=== PATIENT | female | born 1955 | race Caucasian/White ===

== ENCOUNTER 2016-11-13 20:03 | Inpatient (IN) | payer MEDICARE, BC ==
[2016-11-13] MEDS ORDERED: Levalbuterol HCl 0.63 MG/3 ML Neb NEB ONE (20:04)
[2016-11-13] MEDS ORDERED: methylPREDNISolone Sodium Succinate 125 MG/2 ML SDV IVPUSH ONE (20:04)
--- NOTE | 2016-11-13 20:05 | EDM.PDOC ---
ED HPI GENERAL MEDICAL PROBLEM - General Stated Complaint: CHEST PAIN Time Seen by Provider: 11/13/16 20:05 Source of Information: Reports: Patient - History of Present Illness INITIAL COMMENTS - FREE TEXT/NARRATIVE: HISTORY AND PHYSICAL: History of present illness: [] Patient with history of COPD on home oxygen dependent 2 L nasal cannula in recent CT history 3 weeks prior presents with shortness of breath and chest pain rated 5/10 nonradiating, she presents via right ambulance The patient was stable on arrival she did receive 2 nitroglycerin and aspirin via ambulance, 02 sat is remained 97% ambulance arrival, they did put her on nonrebreather which did help Chest was quite tight on arrival Solu-Medrol and Xopenex was provided with improvement, patient is now stepped down to nasal cannula, chest pain has resolved, she is able to speak but still significantly short of breath No fever nausea vomiting chills sweats Review of systems: As per history of present illness and below otherwise all systems reviewed and negative. Past medical history: As per history of present illness and as reviewed below otherwise noncontributory. Surgical history: As per history of present illness and as reviewed below otherwise noncontributory. Social history: No reported history of drug or alcohol abuse. Family history: As per history of present illness and as reviewed below otherwise noncontributory. Physical exam: HEENT: Atraumatic, normocephalic, pupils reactive, negative for conjunctival pallor or scleral icterus, mucous membranes moist, throat clear, neck supple, nontender, trachea midline. Lungs: Clear to auscultation, breath sounds equal bilaterally, chest nontender. Heart: S1S2, regular, negative for clicks, rubs, or JVD. Abdomen: Soft, nondistended, nontender. Negative for masses or hepatosplenomegaly. Negative for costovertebral tenderness. Pelvis: Stable nontender. Genitourinary: Deferred. Rectal: Deferred. Extremities: Atraumatic, negative for cords or calf pain. Neurovascular unremarkable. Neuro: Awake, alert, oriented. Cranial nerves II through XII unremarkable. Cerebellum unremarkable. Motor and sensory unremarkable throughout. Exam nonfocal. Diagnostics: [] As below EKG Chest one view Therapeutics: [] Solu-Medrol 125 mg IV Xopenex Ativan 1 mg IV 1 L normal saline bolus Levaquin 500 mg IV Impression: [] Sinus tachycardia Anxiety COPD home oxygen dependent CHF/pneumonia Atypical Chest pain Definitive disposition and diagnosis as appropriate pending reevaluation and review of above. - Related Data Allergies Allergy/AdvReac Type Severity Reaction Status Date / Time albuterol sulfate Allergy Tachycardia Verified 11/13/16 21:13 [From ProAir HFA] Home Meds: Home Meds Tiotropium [Spiriva HandiHaler] 1 puff INH DAILY 05/11/15 [History] traMADol HCl [Tramadol HCl] 50 mg PO Q6H PRN 05/11/15 [History] Budesonide/Formoterol [Symbicort 160-4.5 MCG] 1 inh IH BID 06/25/15 [History] Levalbuterol HCl [Xopenex] 0.63 mg IH Q4HR PRN #30 ml 07/02/15 [Rx] Diltiazem HCl [Diltiazem ER] 1 tab PO DAILY 05/11/16 [History] Metoprolol Succinate [Toprol XL] 0.5 tab PO BEDTIME 05/11/16 [History] Promethazine [Phenergan] 12.5 mg PO Q6H PRN 05/11/16 [History] Past Medical History Respiratory History: Reports: COPD, Other (see below) Other Respiratory History: emphysema. home O2 at times [employer] History: Reports: Other OB/BYN History: vaginal delivery - Past Surgical History HEENT Surgical History: Reports: Other (see below) Other HEENT Surgeries/Procedures: vocal cord repair Other Respiratory Surgeries/Procedures: lung tumor removal Social & Family History - Family History Family Medical History: Noncontributory - Tobacco Use Smoking Status *Q: Former Smoker Years of Tobacco use: 30 Packs/Tins Daily: 2 Used Tobacco, but Quit: Yes Month Tobacco Last Used: quit 10 years ago Second Hand Smoke Exposure: No - Recreational Drug Use Recreational Drug Use: No ED ROS GENERAL - Review of Systems Review Of Systems: ROS reveals no pertinent complaints other than HPI. ED EXAM, GENERAL - Physical Exam Exam: See Below Course - Vital Signs Last Recorded V/S: Last Vital Signs Temp Pulse 129 H 11/13/16 20:25 Resp 18 11/13/16 20:25 BP 121/55 L 11/13/16 20:25 Pulse Ox 97 11/13/16 20:25 - Orders/Labs/Meds Orders: Active Orders 24 hr Category Date Time Status EKG Documentation Completion [RC] STAT Care 11/13/16 20:06 Active RT Aerosol Therapy [RC] ASDIRECTED Care 11/13/16 20:04 Active Chest 1V Frontal [CR] Stat Exams 11/13/16 20:06 Taken B-TYPE NATRIURETIC PEPTIDE,BNP [CHEM] Stat Lab 11/13/16 21:19 Ordered CULTURE BLOOD [BC] Stat Lab 11/13/16 21:20 Ordered CULTURE BLOOD [BC] Stat Lab 11/13/16 21:20 Ordered UA W/MICROSCOPIC [URIN] Stat Lab 11/13/16 21:10 Received Sodium Chloride 0.9% [Normal Saline] 1,000 ml Med 11/13/16 20:39 Active IV STAT Blood Culture x2 Reflex Set [OM.PC] Stat Oth 11/13/16 21:20 Ordered Medication Orders Sodium Chloride (Normal Saline) 1,000 mls @ 999 mls/hr IV STAT ONE Stop: 11/13/16 21:39 Labs: Laboratory Tests 11/13/16 11/13/16 11/13/16 Range/Units 20:15 20:15 20:15 WBC 8.80 (4.0-11.0) K/uL RBC 3.83 L (4.30-5.90) M/uL Hgb 12.2 (12.0-16.0) g/dL Hct 38.7 (36.0-46.0) % MCV 101.0 H (80.0-98.0) fL MCH 31.9 (27.0-32.0) pg MCHC 31.5 (31.0-37.0) g/dL RDW Std Deviation 46.7 (28.0-62.0) fl RDW Coeff of Caleb 13 (11.0-15.0) % Plt Count 177 (150-400) K/uL MPV 10.90 (7.40-12.00) fL Neut % (Auto) 81.4 H (48.0-80.0) % Lymph % (Auto) 7.8 L (16.0-40.0) % [place] % (Auto) 10.5 (0.0-15.0) % Eos % (Auto) 0.2 (0.0-7.0) % Baso % (Auto) 0.1 (0.0-1.5) % Neut # 7.2 H (1.4-5.7) K/uL Lymph # 0.7 (0.6-2.4) K/uL [place] # 0.9 H (0.0-0.8) K/uL Eos # 0.0 (0.0-0.7) K/uL Baso # 0.0 (0.0-0.1) K/uL Nucleated RBC % 0.0 /100WBC Nucleated RBCs # 0 K/uL Sodium 137 (136-146) mmol/L Potassium 4.3 (3.5-5.1) mmol/L Chloride 94 L (98-110) mmol/L Carbon Dioxide 29 (21-31) mmol/L BUN 8 (6.0-23.0) mg/dL Creatinine 0.6 (0.6-1.5) mg/dL Est Cr Clr Drug Dosing TNP Estimated GFR (MDRD) > 60.0 ml/min Glucose 106 (60-110) mg/dL Calcium 10.2 (8.8-10.8) mg/dL Total Bilirubin 0.7 (0.1-1.5) mg/dL AST 27 (5-40) IU/L ALT 28 (8-54) IU/L Alkaline Phosphatase 91 (40-150) Creatine Kinase 41 (9-236) IU/L CK-MB (CK-2) 3.1 (0-6.6) ng/ml Troponin I < 0.10 (0.0-0.29) NG/ML Total Protein 8.0 (6.0-8.0) g/dL Albumin 4.2 (3.5-5.0) g/dL Globulin 3.8 H (2.0-3.5) g/dL Albumin/Globulin Ratio 1.1 L (1.3-2.8) Amylase 32 (10-90) U/L Lipase < 8 (7-80) U/L Meds: Medications Generic Name Dose Route Start Last Admin Trade Name Freq PRN Reason Stop Dose Admin Sodium Chloride 1,000 mls @ 999 mls/hr 11/13/16 20:39 Normal Saline IV 11/13/16 21:39 STAT ONE Discontinued Medications Generic Name Dose Route Start Last Admin Trade Name Freq PRN Reason Stop Dose Admin Levalbuterol HCl 0.63 mg 11/13/16 20:04 11/13/16 20:13 Xopenex NEB 11/13/16 20:05 0.63 mg ONETIME ONE Administration Lorazepam 1 mg 11/13/16 20:50 Ativan IVPUSH 11/13/16 20:51 ONETIME ONE Methylprednisolone Sodium Succinate 125 mg 11/13/16 20:04 11/13/16 20:18 Solu-Medrol IVPUSH 11/13/16 20:05 125 mg ONETIME ONE Administration Departure - Departure Time of Disposition: 21:22 Disposition: Home, Self-Care 01 Condition: good Clinical Impression: Atypical chest pain, CHF (congestive heart failure) Pneumonia Qualifiers: Pneumonia type: aspiration pneumonia Lung location: unspecified part of lung COPD (chronic obstructive pulmonary disease) Qualifiers: COPD type: COPD with acute exacerbation Qualified Code(s): J44.1 - Chronic obstructive pulmonary disease with (acute) exacerbation Clinical Impression: (Ruled Out): Acute coronary syndrome - My Orders Last 24 Hours: My Active Orders 11/13/16 20:04 RT Aerosol Therapy [RC] ASDIRECTED 11/13/16 20:06 EKG Documentation Completion [RC] STAT Chest 1V Frontal [CR] Stat 11/13/16 20:39 Sodium Chloride 0.9% [Normal Saline] 1,000 ml IV STAT 11/13/16 21:10 UA W/MICROSCOPIC [URIN] Stat 11/13/16 21:19 B-TYPE NATRIURETIC PEPTIDE,BNP [CHEM] Stat 11/13/16 21:20 CULTURE BLOOD [BC] Stat CULTURE BLOOD [BC] Stat Blood Culture x2 Reflex Set [OM.PC] Stat - Assessment/Plan Last 24 Hours: My Active Orders 11/13/16 20:04 RT Aerosol Therapy [RC] ASDIRECTED 11/13/16 20:06 EKG Documentation Completion [RC] STAT Chest 1V Frontal [CR] Stat 11/13/16 20:39 Sodium Chloride 0.9% [Normal Saline] 1,000 ml IV STAT 11/13/16 21:10 UA W/MICROSCOPIC [URIN] Stat 11/13/16 21:19 B-TYPE NATRIURETIC PEPTIDE,BNP [CHEM] Stat 11/13/16 21:20 CULTURE BLOOD [BC] Stat CULTURE BLOOD [BC] Stat Blood Culture x2 Reflex Set [OM.PC] Stat
[2016-11-13] MEDS ORDERED: Sodium Chloride 0.9% 1,000 ML IV ONE (20:39)
[2016-11-13 20:49] LABS: CHLORIDE,CL 94 mmol/L (98-110); SODIUM,NA 137 mmol/L (136-146)
[2016-11-13] MEDS ORDERED: LORazepam 2 MG/ML MDV IVPUSH ONE (20:50)
[2016-11-13] MEDS ORDERED: Levofloxacin 500 MG Tab PO ONE (21:23)
[2016-11-13] MEDS ORDERED: Albuterol 0.083% 2.5 MG/3 ML Neb Soln NEB PRN (22:16)
[2016-11-13] MEDS ORDERED: Morphine 2 MG/ML Syringe IVPUSH PRN (22:16)
[2016-11-13] MEDS ORDERED: Nitroglycerin 0.4 MG Tab.SL SL PRN (22:21)
[2016-11-13] MEDS ORDERED: Levofloxacin/Dextrose 5%-Water 250 MG in Premix Bag 1 BAG IV ONE (22:24)
[2016-11-13] MEDS ORDERED: Levalbuterol HCl 0.63 MG/3 ML Neb NEB PRN (22:55)
[2016-11-13] MEDS ORDERED: Levofloxacin/Dextrose 5%-Water 750 MG in Premix Bag 1 BAG IV SCH (23:00)
[2016-11-13] MEDS ORDERED: Flumazenil 0.1 MG/ML 5 ML MDV IVPUSH ONE ×2 (23:18→23:45)
[2016-11-13] MEDS ORDERED: Ondansetron 4 MG/2 ML SDV IVPUSH ONE (23:46)
[2016-11-13] MEDS ORDERED: Ondansetron 4 MG/2 ML SDV ONE (23:49)
[2016-11-14] MEDS ORDERED: Piperacillin/Tazobactam 4.5 GM in Sodium Chloride 0.9% 100 ML IV SCH ×2
[2016-11-14] MEDS ORDERED: methylPREDNISolone Sodium Succinate 125 MG/2 ML SDV IVPUSH ONE (00:07)
[2016-11-14] MEDS ORDERED: Levofloxacin/Dextrose 5%-Water 250 MG in Premix Bag 1 BAG IV ONE (01:13)
[2016-11-14] MEDS ORDERED: ALPRAZolam 0.25 MG Tab PO ONE (01:21)
[2016-11-14] MEDS ORDERED: methylPREDNISolone Sodium Succinate 40 MG/1 ML SDV IVPUSH SCH (02:00)
[2016-11-14] MEDS ORDERED: Midazolam 1 MG/ML 2 ML SDV ONE (03:37)
[2016-11-14] MEDS ORDERED: fentaNYL 100 MCG/2 ML SDV ONE (03:37)
[2016-11-14] MEDS ORDERED: Lidocaine 2% 5 ML SDV ONE (03:38)
[2016-11-14] MEDS ORDERED: Enoxaparin 40 MG/0.4 ML Syringe SUBCUT ONE (04:28)
--- NOTE | 2016-11-14 04:31 | PCM.SN ---
- Free Text/Narrative Note: [id number]
--- NOTE | 2016-11-14 04:54 | PCM.SN ---
- Free Text/Narrative Note: Called for intubation for transfer on patient in ICU. Pt with history of recent KS, COPD (on home O2 prn), rt Lobectomy, vocal cord paralysis with right deviation per records. Pt VS HR 135 RR 42 BP 149/81 SpO2 89%. Dr. Ordoñez on phone arranging transfer to [place] via air ambulance. Air ambulance contacted and en route. of patient at bedside and involved in decision making. States preference to transfer to [place] vs [place] due to time of transfer difference. 0347:Pt induced with 1 mg Versed, 50 mcg fentanyl, 100 mg lidocaine, 18 mg etomidate and 100 mg succinylcholine. 7.0 ETT placed under direct visualization of clear cords with Portillo 2 blade. No apparent visualization. Positive ETCO2 indicator, lung sounds clear to left and absent on right (prior lobectomy). 0356: Pt given additional fentanyl 50 mcg IV. BP 102/59 0357: Pt given additional Versed 1 mg IV due to movement and eyes opening. 0405: Pt given Rocuronium 20 mg IV due to movement. BP 115/70 20 Gauge IV catheter placed to right forearm under aseptic technique after 2 unsuccessful attempts by nursing ward supervisor, Marcello and flight crew staff. OG placed by ICU staff with placement confirmed with air auscultation. Flight team in attendance just after intubation. Pt response to intubation and VS monitored at bedside until time of transfer. Care transferred to flight team per verbal report and pt placed on cart for transfer to [place].
[2016-11-14] MEDS ORDERED: Levofloxacin/Dextrose 5%-Water 750 MG in Premix Bag 1 BAG IV ONE (06:00)
[2016-11-14 07:17] VITALS: BP 149/81
--- NOTE | 2016-11-14 07:54 | HP ---
DATE OF : 1955 PRIMARY CARE PHYSICIAN: Rosalind Galvez DO HISTORY OF PRESENT ILLNESS: The patient was seen before mid night. The patient is a 60-year-old female presented to emergency room with chief complaint of chest pain, which actually was localized in the upper abdomen below the ribs right and left, and also shortness of breath. The patient for the past 2 days was started on Levaquin and prednisone for respiratory infection. She has end-stage lung disease and she was evaluated for lung transplant, but the transplant was on hold because she was found to have osteoporosis. 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 When the EMS arrived, the patient's oxygen saturation was 97%, and she is usually on 2 L oxygen at home, and she was given oxygen on on nonrebreather mask on her way to ER.. On the way to the hospital, her chest was quite tight as per ER note On arrival, Solu -Medrol and Xopenex were provided with improvement. The patient was placed on nasal cannula and her chest pain has resolved. As I said, when I discussed with the patient, her pain was in the upper abdomen . History of present illness is limited as the patient could not provide history very much, most of the history of present illness is from her . In the emergency room, the patient received 1 mg of Ativan and when she arrived on the floor she was unresponsive and she was transferred to ICU and was given flumazenil to reverse the benzo effect, and ABGs were ordered. PAST MEDICAL HISTORY: The patient has history of carcinoid. She has history of COPD, history of tobacco abuse, and history of vocal cord paralysis. PAST SURGICAL HISTORY: The patient is status post resection of portion of the right lung and status post vocal cord surgery. ALLERGIES: She is allergic to albuterol. She gets hyperactive. SOCIAL HISTORY: She is a smoker. She used to smoke since age 15, few packs a day, and she quit smoking 10 years ago. No alcohol use. No drug use. FAMILY HISTORY: Could not be obtained. REVIEW OF SYSTEMS: Could not be obtained due to the patient's altered mental status. PHYSICAL EXAMINATION: VITAL SIGNS: Temperature was 98.51, and pulse 128, and blood pressure 133/80, respiratory rate 32, and oxygen saturation by pulse oximetry 98% on 4 nasal cannula. When the patient was transferred to ICU, she was on 4 L nasal cannula saturating in the 96% to 99%. HEENT: Head is atraumatic and normocephalic. Pupils are equal and reactive to light. The patient does not respond to the verbal stimuli. NECK: Supple. No thyromegaly. No lymphadenopathy. LUNGS: Bilateral wheezing. HEART: S1 and S2. Tachycardic. No murmurs. ABDOMEN: Soft and nontender. Positive bowel sounds. EXTREMITIES: No edema. NEUROLOGIC: The patient does not have any gross focal neurologic deficit and she responded only after she received flumazenil, but for a short period of time due to respiratory distress. Respiratory rate at that time was in the 40s. LABORATORY DATA: On admission, sodium 137, potassium 4.2, chloride 94, CO2 of 29, BUN 8, creatinine 0.6, creatinine clearance GFR more than 60, glucose 106, calcium 10.2. Total bilirubin 0.7, direct bilirubin is 0.5, indirect bilirubin 0.2, AST 27, ALT 28, BNP 182, and troponin less than 0.1, CK-MB 3.1, creatine kinase 41, C-reactive protein 21.74, total protein 8, albumin 9.4, globulin 2.8, amylase 32, lipase less than 8. Urinalysis show bilirubin moderate and urobilinogen 2. Chest x-ray showed stable scarring in the right lung with volume loss, pleural thickening versus small right pleural effusion, interstitial type opacities in the left lung have increased and they are most likely related to scarring, acute airspace disease is not favored, but not excluded. ABGs show pH of 7.29, pCO2 of 67, pO2 of 61, bicarbonate 32, and ABG base excess 4.6, lactate 1.9. The patient's ESR was 59 ASSESSMENT AND PLAN: Acute respiratory failure. We will place the patient on BiPAP and did call the ICU consult and we will maintain oxygen in the low 91% to 92%. For pneumonia, we will give the patient IV antibiotics, Zosyn 4.5 g q.6 hours, and Levaquin for a total dose of 750 mg q.24 hours, and vancomycin as per Pharmacy. Blood culture, sputum cultures. For chronic obstructive pulmonary disease. We will treat the patient with Xopenex and Solu-Medrol 60 mg IV q.6 hours. The patient was given in ER 125 mg of Solu-Medrol and an additional dose of 125 mg was given in ICU. DVT prophylaxis, we will put the patient on heparin subcutaneous. For history of recent myocardial infarction and substernal chest pain, which was secondary to her respiratory distress, we'll f/up serial troponins. The patient currently does not have any chest pain. Her EKG show sinus tachycardia at 130, consider left atrial enlargement, low voltage precordial leads, MD 107, QRS 88, QTc 460. For depression, to be continued with Cymbalta 30 mg p.o. b.i.d. For hypertension, to be continued with diltiazem 120 mg p.o. daily. For hyperlipidemia and history of myocardial infarction atorvastatin 40 mg p.o. at bedtime, aspirin 81 mg p.o. daily. Also for chronic obstructive pulmonary disease, the patient will be continued with Symbicort 1 puff inhaled b.i.d. DISCHARGE SUMMARY: The patient had an improvement on BiPAP, which was for about 1 h and her respiratory rate decreased to 28 and afterwards the patient refused the BiPAP and she was evaluated by Critical Care. He repeated ABG at 2:35 a.m., and ABG was worsen with pH 7.24, pCO2 of 74, and pO2 of 117. Prior to ABG, she was placed on 4 L nasal cannula , saturating 100% . I was called by the ICU attending and we recommend the patient to be intubated, and Anesthesia was called. In the mean time, I have placed the patient on BiPAP again and I discussed with [facility] , ER, where her wanted her to go, but the doctor was in a code and was not available. Due to the emergency of the situation, I have called [facility] and she was accepted by Dr. Quinteros. Her agreed to be transferred to [place] and also discussed with ICU attending Dr. Weiner, who recommended the patient to go to emergency room and not to ICU, because he is not there permanently. . The patient was intubated and transferred via helicopter to [facility]. RASHARD / LENORE /[id number] MTD
[2016-11-14] MEDS ORDERED: SYMBICORT INH SCH (09:00)
[2016-11-14] MEDS ORDERED: Tiotropium Inhaler 18 MCG Inhalation Powder Cap Kit of 5 INH SCH (09:00)
[2016-11-14] MEDS ORDERED: Diltiazem 120 MG Cap.CD PO SCH (09:00)
[2016-11-14] MEDS ORDERED: Aspirin 81 MG Tab.Chew PO SCH (09:00)
[2016-11-14] MEDS ORDERED: DULoxetine 30 MG Cap PO SCH (09:00)
[2016-11-14] MEDS ORDERED: guaiFENesin 600 MG Tab.ER PO SCH (09:00)
--- NOTE | 2016-11-14 18:55 | CR ---
EXAM DATE: 11/13/16 PATIENT'S AGE: 60 Patient: ANAYELI CORNELIUS Facility: [place], [place] Site . Site : 1955 Study: XRay Chest [id number] 8:29:54 PM Ordering Physician: Kashmir Santiago Final Report: INDICATION: pain/shortness of breath HISTORY: Pain and shortness of breath. COMPARISON: Chest, 2 views 07/24/2015. TECHNIQUE: Chest one-view portable upright. FINDINGS: There is volume loss in the right hemithorax, with ipsilateral shift of mediastinal structures, pleural/parenchymal scarring, and blunting of the right lateral costophrenic sulcus. There is hyperinflation of the left lung, with interstitial type opacities, particularly at the periphery of the left lung. There is no pneumothorax. Osseous structures are intact. Anastomotic sutures are likely present overlapping the right lung apex. Heart size and pulmonary vasculature are stable. IMPRESSION: 1. Stable scarring in the right lung, with volume loss, pleural thickening versus a small right pleural effusion. 2. Interstitial type opacities in the left lung have increased, and are most likely related to scarring. Acute airspace disease is not favored, but not excluded. Dictated by Carlo Cummings MD @ 11/13/2016 8:46:58 PM Dictated by: Carlo Cummings MD @ 11/13/2016 20:47:03 (Electronic Signature) Report Signed by Proxy and Original Signed Document filed in the Medical Record. [facility]
--- NOTE | 2016-11-14 19:07 | CR ---
EXAM DATE: 11/13/16 PATIENT'S AGE: 60 Patient: ANAYELI CORNELIUS Facility: [place], [place] Site . Site : 1955 Study: XRay Chest [id number] 4:34:29 AM Ordering Physician: Tiago Boggs Final Report: INDICATION: Status post intubation TECHNIQUE: Chest 1 view. COMPARISON: 11/13/2016 FINDINGS: Cardiovascular and mediastinum: Heart size and vasculature are normal in caliber and appearance. Mediastinum is within normal limits. Lungs and pleural space: The ET tube is in place with the tip 4.5 centimeters from the queta. Lungs are clear. No sign of infiltrate or mass. There are pleural effusion. Volume loss right lung with scarring right upper lobe area. No pneumothorax. Bones and soft tissues: No significant findings. IMPRESSION: The ET-tube in place with the tip 4.5 centimeters from the queta. Right pleural effusion. Stable scarring right upper lobe and volume loss right lung. Dictated by Leeroy Corrigan MD @ 11/14/2016 4:37:50 AM Dictated by: Leeroy Corrigan MD @ 11/14/2016 04:37:55 (Electronic Signature) Report Signed by Proxy and Original Signed Document filed in the Medical Record. [facility]
[2016-11-14] MEDS ORDERED: Metoprolol Succinate 25 MG Tab.ER PO SCH (21:00)
[2016-11-14] MEDS ORDERED: atorvaSTATin 40 MG Tab PO SCH (21:00)
== END 2016-11-14 04:50 | DRG 208 ==
LOC: MW.ED 20:03 → MW.MS 21:24 → UNDOADMIN 21:28 → MW.ICU 23:00
PROVIDERS: ADMIT Internal Medicine; ATTEND Internal Medicine
PROC: 0BH17EZ Insertion of Endotracheal Airway into Trachea, Via Natural or Artificial Opening (ICD-10-PCS; 2016-11-13)
PROC: 5A09357 Assistance with Respiratory Ventilation, Less than 24 Consecutive Hours, Continuous Positive Airway Pressure (ICD-10-PCS; principal; 2016-11-14)
PROC: 5A1935Z Respiratory Ventilation, Less than 24 Consecutive Hours (ICD-10-PCS; 2016-11-14)
DX: J44.0 Chronic obstructive pulmonary disease with (acute) lower respiratory infection (principal); J18.9 Pneumonia, unspecified organism; J96.00 Acute respiratory failure, unspecified whether with hypoxia or hypercapnia; R07.89 Other chest pain; I50.9 Heart failure, unspecified; J44.1 Chronic obstructive pulmonary disease with (acute) exacerbation; Z79.899 Other long term (current) drug therapy; I25.2 Old myocardial infarction; F32.9 Major depressive disorder, single episode, unspecified; I10 Essential (primary) hypertension; E78.5 Hyperlipidemia, unspecified; J38.00 Paralysis of vocal cords and larynx, unspecified; Z87.891 Personal history of nicotine dependence; Z99.81 Dependence on supplemental oxygen; Z88.8 Allergy status to other drugs, medicaments and biological substances
CPT/HCPCS: 36415; 71010; 80053; 81001; 82150; 82550; 82553; 83690; 83880; 84484; 85025; 85652; 93005; 94664; 96375; 99285; J2930; 31500; 36410; 36600; 82247; 82248; 82803; 83605; 86140; 87040; 96365; 96374; 99291; A9270-GY; J1956; J2060; J2250; J2405; J2543; J3010; J3370; J7030; J7040; J7050

== ENCOUNTER 2016-11-14 05:20 | Emergency (ER) | payer MEDICARE, BC | END 2016-11-14 06:30 | disposition left against medical advice (07) | LOC: MW.ED 05:20 | DX: Z53.21 Procedure and treatment not carried out due to patient leaving prior to being seen by health care provider (principal) ==

== ENCOUNTER 2017-03-09 18:52 | Emergency (ER) | payer MEDICARE, BC ==
[2017-03-09] MEDS ORDERED: Lidocaine 2% Viscous Solution 15 ML Cup PO ONE (19:16)
[2017-03-09] MEDS ORDERED: Benzocaine 20% Topical Spray UD MUCMEM ONE (19:16)
[2017-03-09] MEDS ORDERED: cefTRIAXone 1 GM in Premix Bag 1 BAG IV ONE (19:17)
[2017-03-09] MEDS ORDERED: Sodium Chloride 0.9% 2.5 ML Syringe FLUSH PRN (19:17)
[2017-03-09] MEDS ORDERED: Sodium Chloride 0.9% 10 ML Syringe FLUSH PRN (19:17)
[2017-03-09] MEDS ORDERED: Ondansetron 4 MG/2 ML SDV IVPUSH ONE (19:18)
--- NOTE | 2017-03-09 19:22 | EDM.PDOC ---
ED HPI GENERAL MEDICAL PROBLEM - General Chief Complaint: General Stated Complaint: PT HAS DIFFICULTY BREATHING Time Seen by Provider: 03/09/17 19:19 Source of Information: Reports: Patient, Family History Limitations: Reports: No Limitations - History of Present Illness INITIAL COMMENTS - FREE TEXT/NARRATIVE: HISTORY AND PHYSICAL: []61-year-old female presents with tooth pain #3 History of Present Illness: []Patient relates having been seen by the dentist was in the hospital in [place] and did not receive antibiotics pain relief Review of Systems: As per history of present illness and below otherwise all systems reviewed and negative. Past medical history: As per history of present illness and as reviewed below otherwise noncontributory. Surgical history: As per history of present illness and as reviewed below otherwise noncontributory. Social history: No reported history of drug or alcohol abuse. Family history: As per history of present illness and as reviewed below otherwise noncontributory. 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 Speaks very softly in 4-5 word sentences HEENT: Atraumatic, normocehpalic, pupils reactive, negative for conjunctival pallor or scleral icterus, mucous membranes moist, throat clear, neck supple, nontender, trachea midline. Multiple missing teeth or his thumb sign of infection tenderness to the #3 Lungs: Wheezing to auscultation, breath sounds equal bilaterally, very poor inspiratory expiratory effort, chest non tender. Heart: S1S2, regular, negative for clicks, rubs, or JVD. Abdomen: Soft, nondistended, nontender. Negative for masses or hepatossplenmegaly. Negative for costovertebral tenderness. Pelvis: Stable nontender. Genitourinary: Deferred. Rectal: Deferred Extremities: Atraumatic, negative for cords or calf pain. Neurovascular unremarkable. Neuro: Awake, alert, oriented. Cranial nerves II through XII unremarkable. Cerebellum unremarkable. Motor and sensory unremarkable throughout. Exam nonfocal. Diagnostics: [CBC CMP] Therapeutics: []Dental balls Impression: [Tooth pain] Plan: []Discharged home Antibiotics Keflex 3 times a day 7 days Follow-up with your dentist for further care Definitive disposition and diagnosis as appropriate pending reevaluation and review of above. Onset: Gradual Duration: Day(s): Chest Pain Score (Numeric/FACES): 6 Tooth/Teeth Pain Score (Numeric/FACES): 8 - Related Data Allergies Allergy/AdvReac Type Severity Reaction Status Date / Time albuterol sulfate Allergy Tachycardia Verified 03/09/17 19:01 [From ProAir HFA] Home Meds: Home Meds Acetaminophen [Tylenol] 650 mg PO Q4H PRN 03/09/17 [History] Arformoterol [Brovana] 15 mcg NEB BID 03/09/17 [History] Aspirin 81 mg PO ONETIME 03/09/17 [History] Bisacodyl [Dulcolax] 10 mg RC Q8HR PRN 03/09/17 [History] Cephalexin [Keflex] 500 mg PO TID #30 capsule 03/09/17 [Rx] Past Medical History - Past Health History Medical/Surgical History: Denies Medical/Surgical History Cardiovascular History: Reports: [place], Other (See Below) Other Cardiovascular History: remove fluid in the heart Respiratory History: Reports: COPD, Other (See Below) Other Respiratory History: collapse lungs Gastrointestinal History: Reports: None, Other (See Below) Other Gastrointestinal History: tube feeding Genitourinary History: Reports: None [employer] History: Reports: Other OB/BYN History: vaginal delivery Musculoskeletal History: Reports: None Neurological History: Reports: None Psychiatric History: Reports: Anxiety Endocrine/Metabolic History: Reports: None Hematologic History: Reports: None Immunologic History: Reports: None Oncologic (Cancer) History: Reports: None Dermatologic History: Reports: None - Infectious Disease History Infectious Disease History: Reports: None - Past Surgical History Head Surgeries/Procedures: Reports: None HEENT Surgical History: Reports: Other (See Below) Other HEENT Surgeries/Procedures: thracheostomyh Social & Family History - Family History Family Medical History: Noncontributory - Tobacco Use Smoking Status *Q: Never Smoker Years of Tobacco use: 30 Packs/Tins Daily: 2 Used Tobacco, but Quit: Yes Month Tobacco Last Used: 1999 Second Hand Smoke Exposure: No - Caffeine Use Caffeine Use: Reports: None - Recreational Drug Use Recreational Drug Use: No ED ROS GENERAL - Review of Systems Review Of Systems: See Below (See dictation) Respiratory: Reports: Shortness of Breath, Wheezing ED EXAM, GENERAL - Physical Exam Exam: See Below () Course - Vital Signs Last Recorded V/S: Last Vital Signs Temp 36.7 C 03/09/17 19:01 Pulse 125 H 03/09/17 19:01 Resp 17 03/09/17 19:01 BP 120/64 03/09/17 19:01 Pulse Ox 98 03/09/17 19:01 - Orders/Labs/Meds Orders: Active Orders 24 hr Category Date Time Status Sodium Chloride 0.9% [Normal Saline] 500 ml Med 03/09/17 19:30 Active IV STAT Sodium Chloride 0.9% [Saline Flush] Med 03/09/17 19:17 Active 10 ml FLUSH ASDIRECTED PRN Sodium Chloride 0.9% [Saline Flush] Med 03/09/17 19:17 Active 2.5 ml FLUSH ASDIRECTED PRN Saline Lock Insert [OM.PC] Stat Oth 03/09/17 19:17 Ordered Medication Orders Sodium Chloride (Normal Saline) 500 mls @ 999 mls/hr IV STAT PETERSON Last Admin: 03/09/17 19:31 Dose: 999 mls/hr Sodium Chloride (Saline Flush) 10 ml FLUSH ASDIRECTED PRN PRN Reason: Keep Vein Open Sodium Chloride (Saline Flush) 2.5 ml FLUSH ASDIRECTED PRN PRN Reason: Keep Vein Open Labs: Laboratory Tests 03/09/17 03/09/17 Range/Units 19:25 19:25 WBC 7.29 (4.0-11.0) K/uL RBC 3.44 L (4.30-5.90) M/uL Hgb 10.3 L (12.0-16.0) g/dL Hct 34.0 L (36.0-46.0) % MCV 98.8 H (80.0-98.0) fL MCH 29.9 (27.0-32.0) pg MCHC 30.3 L (31.0-37.0) g/dL RDW Std Deviation 50.5 (28.0-62.0) fl RDW Coeff of Caleb 14 (11.0-15.0) % Plt Count 356 (150-400) K/uL MPV 9.70 (7.40-12.00) fL Neut % (Auto) 71.6 (48.0-80.0) % Lymph % (Auto) 15.8 L (16.0-40.0) % [place] % (Auto) 7.7 (0.0-15.0) % Eos % (Auto) 4.8 (0.0-7.0) % Baso % (Auto) 0.1 (0.0-1.5) % Neut # (Auto) 5.2 (1.4-5.7) K/uL Lymph # (Auto) 1.2 (0.6-2.4) K/uL [place] # (Auto) 0.6 (0.0-0.8) K/uL Eos # (Auto) 0.4 (0.0-0.7) K/uL Baso # (Auto) 0.0 (0.0-0.1) K/uL Nucleated RBC % 0.0 /100WBC Nucleated RBCs # 0 K/uL Sodium 140 (136-146) mmol/L Potassium 4.0 (3.5-5.1) mmol/L Chloride 100 (98-110) mmol/L Carbon Dioxide 31 (21-31) mmol/L BUN 7 (6.0-23.0) mg/dL Creatinine 0.5 L (0.6-1.5) mg/dL Est Cr Clr Drug Dosing 97.67 mL/min Estimated GFR (MDRD) > 60.0 ml/min Glucose 166 H (60-110) mg/dL Calcium 10.0 (8.8-10.8) mg/dL Total Bilirubin 0.3 (0.1-1.5) mg/dL AST 21 (5-40) IU/L ALT 24 (8-54) IU/L Alkaline Phosphatase 75 (40-150) Total Protein 7.3 (6.0-8.0) g/dL Albumin 3.2 L (3.4-4.8) g/dL Globulin 4.1 H (2.0-3.5) g/dL Albumin/Globulin Ratio 0.8 L (1.3-2.8) Meds: Medications Generic Name Dose Route Start Last Admin Trade Name Freq PRN Reason Stop Dose Admin Sodium Chloride 500 mls @ 999 mls/hr 03/09/17 19:30 03/09/17 19:31 Normal Saline IV 999 mls/hr STAT PETERSON Administration Sodium Chloride 10 ml 03/09/17 19:17 Saline Flush FLUSH ASDIRECTED PRN Keep Vein Open Sodium Chloride 2.5 ml 03/09/17 19:17 Saline Flush FLUSH ASDIRECTED PRN Keep Vein Open Discontinued Medications Generic Name Dose Route Start Last Admin Trade Name Franny PRN Reason Stop Dose Admin Benzocaine 2 each 03/09/17 19:16 03/09/17 19:32 Hurricaine One 20% MUCMEM 03/09/17 19:17 2 each ONETIME ONE Administration Ceftriaxone Sodium/Dextrose 1 50 mls @ 100 mls/hr 03/09/17 19:17 03/09/17 19: 32 gm/ Premix IV 03/09/17 19:46 100 mls/hr ONETIME ONE Administration Lidocaine HCl 15 ml 03/09/17 19:16 03/09/17 19:32 Xylocaine 2% Viscous PO 03/09/17 19:17 15 ml ONETIME ONE Administration Ondansetron HCl 4 mg 03/09/17 19:18 03/09/17 19:32 Zofran IVPUSH 03/09/17 19:19 4 mg ONETIME ONE Administration Departure - Departure Time of Disposition: 20:34 Disposition: Home, Self-Care 01 Condition: Good Clinical Impression: Tooth pain - Discharge Information Prescriptions: Cephalexin [Keflex] 500 mg PO TID #30 capsule Referrals: PCP,None [Primary Care Provider] - Forms: ED Department Discharge Additional Instructions: The following information is given to patients seen in the emergency department who are being discharged to home. This information is to outline your options for follow-up care. We provide all patients seen in our emergency department with a follow-up referral. The need for follow-up, as well as the timing and circumstances, are variable depending upon the specifics of your emergency department visit. If you don't have a primary care physician on staff, we will provide you with a referral. We always advise you to contact your personal physician following an emergency department visit to inform them of the circumstance of the visit and for follow-up with them and/or the need for any referrals to a consulting specialist. The emergency department will also refer you to a specialist when appropriate. This referral assures that you have the opportunity for followup care with a specialist. All of these measure are taken in an effort to provide you with optimal care, which includes your followup. Under all circumstances we always encourage you to contact your private physician who remains a resource for coordinating your care. When calling for followup care, please make the office aware that this follow-up is from your recent emergency room visit. If for any reason you are refused follow-up, please contact the [facility] emergency department at and asked to speak to the emergency department charge nurse. Prescription for Keflex antibiotic has been electronically sent to [facility] - My Orders Last 24 Hours: My Active Orders 03/09/17 19:17 Sodium Chloride 0.9% [Saline Flush] 10 ml FLUSH ASDIRECTED PRN Sodium Chloride 0.9% [Saline Flush] 2.5 ml FLUSH ASDIRECTED PRN Saline Lock Insert [OM.PC] Stat 03/09/17 19:30 Sodium Chloride 0.9% [Normal Saline] 500 ml IV STAT - Assessment/Plan Last 24 Hours: My Active Orders 03/09/17 19:17 Sodium Chloride 0.9% [Saline Flush] 10 ml FLUSH ASDIRECTED PRN Sodium Chloride 0.9% [Saline Flush] 2.5 ml FLUSH ASDIRECTED PRN Saline Lock Insert [OM.PC] Stat 03/09/17 19:30 Sodium Chloride 0.9% [Normal Saline] 500 ml IV STAT
[2017-03-09] MEDS ORDERED: Sodium Chloride 0.9% 500 ML IV SCH (19:30)
[2017-03-09 20:10] LABS: CHLORIDE,CL 100 mmol/L (98-110); SODIUM,NA 140 mmol/L (136-146)
[2017-03-10 02:39] VITALS: BP 117/69
== END 2017-03-09 20:45 | disposition home or self-care (01) ==
LOC: MW.ED 18:52
DX: K08.89 Other specified disorders of teeth and supporting structures (principal); I25.2 Old myocardial infarction; J44.9 Chronic obstructive pulmonary disease, unspecified; F41.9 Anxiety disorder, unspecified; Z98.890 Other specified postprocedural states; Z87.891 Personal history of nicotine dependence; Z88.8 Allergy status to other drugs, medicaments and biological substances
CPT/HCPCS: 36415; 80053; 85025; 96361; 96365; 96375; 99284; A9270; J0696; J2405; J7040; 99283